=== PATIENT | male | born 1960 | race Caucasian/White ===

== ENCOUNTER → 2017-10-12 | Outpatient (CLI) | payer BC ==
[~2017-10-12] MED LIST: ASPI-113 PO; ATOR80TA PO; CLOP1TAB5 PO; ESCI1TAB9 PO; METO25TA3 PO; NTRGSL/4 UT; OMEP20CA9 PO; SYMIN160 INH
[2017-10-12 10:16] LABS: ALT/SGPT 24 U/L (12-78); AST/SGOT 20 U/L (15-37); BLOOD UREA NITROGEN 12 mg/dl (7-18); BUN/CREATININE RATIO 13.6 (10-20); CALCIUM 9.2 mg/dl (8.5-10.1); CARBON DIOXIDE 30 mmol/L (21-32); CHLORIDE 100 mmol/L (98-107); CHOLESTEROL 136 mg/dl (0-200); CREATININE 0.88 mg/dl (0.60-1.40); GLUCOSE 93 mg/dl (70-99); SODIUM 134 mmol/L (136-145)
[2017-10-12 10:19] LABS: HDL CHOLESTEROL 45 mg/dl; LDL CHOLESTEROL CALCULATED 77 mg/dl; TRIGLYCERIDES 72 mg/dl (0-150); VERY LOW DENSITY LIPOPROT CALC 14 mg/dl
== END | disposition home or self-care (01) ==
LOC: C.LAB 08:48
DX: I10 Essential (primary) hypertension (principal); E78.5 Hyperlipidemia, unspecified

== ENCOUNTER 2024-02-04 22:42 | Inpatient (IN) ==
[2024-02-04 23:36] LABS: Hematocrit (blood only) 31.6 % (42.0-52.0); Hemoglobin 10.9 g/dl (14.0-18.0); Mean Corpuscular Hgb Conc 34.5 g/dL (32.0-36.0); Mean Corpuscular Volume 89.8 fL (80.0-100.0); Platelet Count 181 K/uL (130-400); RDW Coefficient of Variation 11.9 % (11.5-14.5); Red Blood Count 3.52 M/uL (4.70-6.10); White Blood Count 7.44 K/ul (4.8-10.8)
[2024-02-04 23:47] LABS: Albumin Globulin Ratio 1.8 (0.9-2); Albumin Level 3.7 gm/dl (3.4-5.0); BUN Creatinine Ratio 23.1 (10-20); Bilirubin,Total 0.5 mg/dl (0.2-1.0); Calcium 8.9 mg/dl (8.6-10.3); Creatinine Clr Calc Pharmacy 57.2 ml/min; Est GFR (African American) 65.3 ml/min; Est GFR (Non-African American) 56.4 ml/min; Globulin 2.1 gm/dl (2.5-4.0); Potassium 4.5 mmol/L (3.5-5.1); Total Protein 5.8 gm/dl (6.0-8.3)
[2024-02-04 23:54] LABS: Troponin I High Sensitivity 6.4 pg/ml (0-20)
[2024-02-05 00:06] LABS: Partial Thromboplastin Ratio 0.8; Partial Thromboplastin Time 23 Seconds (21-31); Prothrombin Time 11.1 Seconds (9.0-12.0)
[2024-02-05] MEDS: FAMOTIDINE 20MG IV PUSH 20 MG/5 ML SYR IV STA (03:37)
--- NOTE | 2024-02-05 03:37 | History & Physical Report ---
Date of Service February 05, 2024 Assessment & Plan (1) Upper GI bleed: Plan: Pt is a 63 yo male with PMH of HTN, CAD, HLD, and asthma presenting due to syncope and dark stools. Upper GI bleed - pt had endoscopy performed 02/03/2024 where he had a Schatzki ring dilated and biopsies taken d/t gastritis (path showed inflammation, no metaplasia) - Hgb from 02/2022 15.0; 10.9 upon admission - continue protonix drip started in ER; will keep NPO aside from necessary meds - monitor Hgb and symptoms for stability/improvement Acute blood loss anemia - secondary to above - folate 12.68, B12 292, iron studies WNL (although ferritin low-normal) Orthostatic hypotension w/ syncope - pt was evaluated upon prior presentation to the ER 02/03 after passing out at his PCP office while having orthostatic VS performed - CXR neg; CTA showed no PE or consolidations and a 3 mm lung nodule (not requiring f/u) - suspect most likely secondary to above - hold home losartan, metoprolol, and tamsulosin CAD - pt states he had a stent placed in 2004; no hx of acute ID or stroke - will hold plavix and aspirin in the setting of active bleed; if Hgb remains stable, medications should be restarted as early as is safe Depression - continue home escitalopram 10 mg Diet: NPO VTE ppx: deferred as pt is actively bleeding Code: full Dispo: med/tele (2) Hypertension: (3) Dyslipidemia: (4) Multiple vessel coronary artery disease: (5) Anemia: (6) Orthostatic hypotension: History of Present Illness Chief Complaint: syncope, black stool Primary Care Provider: Ramone Alan DO Pt is a 63 yo male with PMH of HTN, CAD, HLD, and asthma presenting due to syncope and dark stools. Pt relays that he had an endoscopy on 02/02 d/t GERD. That evening, he began to feel lightheaded/dizzy and SOB, especially when walking around. He was seen at his PCP office yesterday and when doing orthostatic vital signs, he passed out. He was evaluated in the ER and discharged home. However, after arriving at home, he continued to feel lightheaded/dizzy with ambulation and noted to have a black stool which prompted his return to the ER. In the ER, pt was started on a protonix drip and given famotidine 20 mg x1. Allergies Allergy/AdvReac Type Severity Reaction Status Date / Time Penicillins Allergy Unknown A Verified 02/04/24 10:03 CHILD/UNSURE OF REACTION Home Medications Medication Instructions Recorded Confirmed Type aspirin 81 mg tablet,delayed 81 mg PO Q2D 12/03/19 02/05/24 History release nitroglycerin 0.4 mg sublingual 0.4 mg sublingual Q5M PRN chest 12/03/19 02/05/24 Rx tablet pain #25 tabs budesonide 180 mcg/actuation 1 inh inhalation DAILY PRN asthma 03/07/23 02/05/24 Rx breath activated powder inhaler #1 ea (Pulmicort Flexhaler) pantoprazole 40 mg tablet,delayed 40 mg PO DAILY PRN Heartburn 12/03/23 02/05/24 History release escitalopram oxalate 10 mg tablet 10 mg PO QAM 01/22/24 02/05/24 History losartan 25 mg tablet 25 mg PO QAM 01/22/24 02/05/24 History metoprolol succinate 25 mg 25 mg PO QAM 01/22/24 02/05/24 History tablet,extended release 24 hr montelukast 10 mg tablet 10 mg PO HS 01/22/24 02/05/24 History (Singulair) rosuvastatin 40 mg tablet 40 mg PO HS 01/22/24 02/05/24 History tamsulosin 0.4 mg capsule 0.4 mg PO UD 01/22/24 02/05/24 History clopidogrel 75 mg tablet (Plavix) 75 mg PO Q OTHER DAY 02/04/24 02/05/24 History prednisone 20 mg tablet 60 mg (3 x 20 mg) PO DAILY 4 days 02/04/24 02/05/24 Rx #12 tabs Past Med/Surg History Medical History On anticoagulant therapy History of COVID-19 Heartburn History of cold sores Hx of prostatitis Hypertension Multiple vessel coronary artery disease Dyslipidemia Asthma Allergic rhinitis Surgical History History of colonoscopy [place] teeth removed S/P herniorrhaphy (~2012) S/P coronary artery stent placement (2004) Family History Father Coronary heart disease Grandmother (Maternal) Breast cancer Grandfather (Maternal) Myocardial infarction Grandmother (Paternal) Parkinson disease Father CVA (cerebrovascular accident due to intracerebral hemorrhage) Other No family history of adverse response to anesthesia Social History Smoking Status: Never smoker Second Hand Exposure: No ( A CHILD); Do You Dip or Chew Tobacco: No; Hx Alcohol Use: Yes Alcohol type: wine Alcohol Intake Frequency: 2-4 x/Month Hx Substance Use: No Preferred Language: Malay Communication Ability: Effective Visual Impairment: Limited Hearing Ability: Normal Clamshell Engineer Required: No Beliefs That Will Affect Care: None marital status: Current Living Situation: Spouse current occupational status: employed Other Information That Helps Us Care for You: No Feels Safe at Home: Yes Safety Concerns: Feels Safe At This Time Childhood Exposure to Second-Hand Smoke: Yes Diet: regular caffeine: Yes Dental Care, Regularly: Yes Physical Activity Frequency: 5-6 Times per Week Seatbelt Use: always Sunscreen Use: Yes Do you think of yourself as: straight/heterosexual Assistive Devices: None Review of Systems Review of Systems: As per HPI Physical Exam Constitutional: NAD, vitals WNL. Pale appearing. Respiratory: CTA bilaterally. Non labored breathing. No rhonchi, wheezing, or crackles. Cardiovascular: RRR. No murmurs noted. No LE edema. Gastrointestinal (Abdomen): Nontender, +BS. No masses noted. Skin: No rashes or skin lesions noted. Neurologic: Sensation grossly intact. No FND appreciated. Psychiatric: Speech of normal pace and content. Mood and affect congruent. Results & Data Results & Data Vital Signs (Past 12 Hours) Vital Signs Temp Pulse Resp BP Pulse Ox O2 Del Method 02/05/24 03:20 74 22 96 02/05/24 03:10 71 18 95 02/05/24 03:00 69 16 93 02/05/24 03:00 69 16 120/72 93 02/05/24 02:50 67 15 94 02/05/24 02:41 80 19 96 02/05/24 02:41 80 19 107/74 96 02/05/24 02:40 84 12 95 02/05/24 02:40 84 12 120/76 95 02/05/24 02:39 70 15 95 02/05/24 02:39 70 15 127/76 95 02/05/24 02:30 65 15 94 02/05/24 02:30 65 15 115/73 94 02/05/24 02:20 68 16 94 02/05/24 02:15 74 16 95 02/05/24 02:15 74 16 112/72 95 02/05/24 02:10 66 15 95 02/05/24 02:00 68 16 112/72 95 02/05/24 01:50 67 16 96 02/05/24 01:48 67 15 95 02/05/24 01:48 66 02/04/24 22:50 36.8 C 89 18 129/83 97 Room Air Laboratory Results Laboratory Results WBC 8.46 K/ul (4.8-10.8) 02/05/24 04:29 RBC 3.39 M/uL (4.70-6.10) L 02/05/24 04:29 Hgb 10.5 g/dl (14.0-18.0) L 02/05/24 04:29 Hct 29.3 % (42.0-52.0) L 02/05/24 04:29 MCV 86.4 fL (80.0-100.0) 02/05/24 04:29 MCH 31.0 pg (25.0-34.0) 02/05/24 04:29 MCHC 35.8 g/dL (32.0-36.0) 02/05/24 04:29 RDW Std Deviation 37.5 fL (36.4-46.3) 02/05/24 04:29 RDW Coeff of [place] 11.9 % (11.5-14.5) 02/05/24 04:29 Plt Count 173 K/uL (130-400) 02/05/24 04:29 MPV 10.7 fL (9.4-12.4) 02/05/24 04:29 PT 11.1 Seconds (9.0-12.0) 02/04/24 23:15 INR 1.0 (0.9-1.1) 02/04/24 23:15 APTT 23 Seconds (21-31) 02/04/24 23:15 PTT Ratio 0.8 02/04/24 23:15 Sodium 132 mmol/L (136-145) L 02/05/24 04:29 Potassium 4.2 mmol/L (3.5-5.1) 02/05/24 04:29 Chloride 105 mmol/L (98-107) 02/05/24 04:29 Carbon Dioxide 22 mmol/L (21-32) 02/05/24 04:29 Anion Gap 5 (3-11) 02/05/24 04:29 BUN 23 mg/dl (6-23) 02/05/24 04:29 Creatinine 0.75 mg/dl (0.6-1.4) D 02/05/24 04:29 Est Cr Clr Drug Dosing 102.1 ml/min 02/05/24 04:29 Est GFR ( Amer) 113.9 ml/min 02/05/24 04:29 Est GFR (Non-Af Amer) 98.3 ml/min 02/05/24 04:29 BUN/Creatinine Ratio 30.7 (10-20) H 02/05/24 04:29 Glucose 166 mg/dl (70-99(Fasting)) H 02/05/24 04:29 Calcium 8.8 mg/dl (8.6-10.3) 02/05/24 04:29 Total Bilirubin 0.5 mg/dl (0.2-1.0) 02/04/24 23:15 AST 16 U/L (13-39) 02/04/24 23:15 ALT 12 U/L (7-52) 02/04/24 23:15 Alkaline Phosphatase 58 U/L (34-104) 02/04/24 23:15 Troponin I High Sens 6.4 pg/ml (0-20) 02/04/24 23:15 Total Protein 5.8 gm/dl (6.0-8.3) L 02/04/24 23:15 Albumin 3.7 gm/dl (3.4-5.0) 02/04/24 23:15 Globulin 2.1 gm/dl (2.5-4.0) L 02/04/24 23:15 Albumin/Globulin Ratio 1.8 (0.9-2) 02/04/24 23:15 POC Stool Occult Blood Positive (Negative) A 02/05/24 03:26 Blood Type O Negative 02/04/24 23:17 Antibody Screen NEGATIVE 02/04/24 23:17 Supervising Physician Co-Signing Physician Notes Patient seen and examined, chart reviewed, case discussed with Dr. Osullivan and I agree with the assessment and plan as above Patient with recent EGD as followup for GERD. Had biopsies performed and Schatzki ring dilated. Has had pre-syncope and black BMs since as well as nausea and vomiting (no hematemesis but patient reports vomiting what looked like a maroon string) Hgb has gone from baseline of 15 in February 2022 --> 10.6 today. Has been stable on repeat. No coagulopathy. Platelets WNL. He is on ASA and Plavix for h/o cardiac stent but hasn't taken this since Tuesday 01/30 BUN was elevated at 48 earlier on 02/04/24 but has improved, now 23 FOBT Positive No history of liver disease On exam patient is resting comfortably, NAD +S1/S2, regular Lungs CTA Abd soft, NT/ND Ext warm, well perfused Labs and images reviewed -Admit to medical with telemetry -KEep NPO -Gentle IVF -Continue Protonix gtt -GI consultation appreciated -Remainder as above Resident Activity Tracking Resident Involvement: Resident Care Provided Care Provided: Adult Hospital Medicine
[2024-02-05] MEDS: PANTOprazole 80 MG in DEXTROSE 5% 100 ML IV ONE (03:38)
[2024-02-05] MEDS: PANTOPRAZOLE BOLUS/DRIP IV STA (03:42)
[2024-02-05] MEDS: PANTOprazole 40 MG in DEXTROSE 5% MINI-B 100 ML IV SCH (03:58)
[2024-02-05] MEDS ORDERED: ONDANSETRON INJ 2 MG/ML 2 ML VIAL IV PRN (04:30)
--- NOTE | 2024-02-05 04:32 | Emergency Department Note ---
Impression & Plan UGIB (upper gastrointestinal bleed) ED Provider Note NAME: CATALINO GARCIA AGE: 63 SEX: Male INFORMANT: Patient ED PROVIDER(S): Paolo Fatima MD CHIEF COMPLAINT: Near syncope and black stool PLAN: Disposition: Admitted Outpatient prescription management: none Referral: None MEDICAL DECISION MAKING: Patient presented because of near syncope symptoms and black stool. Hemoccult positive on rectal examination. Patient has a 5 point drop in his hemoglobin compared to 2021. Stable from earlier today. Protonix and Pepcid started. Patient will need further evaluation and management in the hospital. Consultation made with Dr. Joe of the [facility]. Case discussed and diagnostics were reviewed. Patient was evaluated in the ER and admitted for further management. 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 Triage Nursing notes: reviewed and agree them. Vital Signs: reviewed and remarkable for no significant abnormalities Additional History obtained from: none Chronic Medical/Social Conditions affecting care: Plavix use Prior/ Outside/ External records reviewed: none Differential Diagnosis: Diverticulosis, AVM, coagulopathy, colitis, inflammatory bowel disease, malignancy, Isabel-Hahn tear, esophagitis, peptic ulcer disease, variceal bleed, gastritis, epistaxis, fissure, hemorrhoids, as well as other pathologies. Diagnostics, independently interpreted by me: ECG: Normal sinus rhythm at [address] No [address] elevation. Cardiac Monitoring: Cardiac monitoring ordered by me: The patient was placed on continuous cardiac monitoring and observed. It revealed a normal sinus rhythm at 68 beats per minute without ectopy or evidence of dysrhythmia. Medical decision rules: none Imaging studies: Deferred HPI: 63 year old Male arrives for evaluation of near syncope and black stool. Patient was in the emergency department earlier today after syncopal episode. He did well and was discharged. When he went home he noted the symptoms of near syncope. No additional syncopal episodes occurred. He felt some weakness with walking. The patient then noted having a black stool. Patient did recently have an endoscopy performed. He is on Plavix but has not taken it in several days. No history of GI bleed. Pt denies headache, fevers, chills, diaphoresis, visual changes, neck pain, chest pain, breathing difficulties, nausea, vomiting, abdominal pain, back pain, hematochezia, urinary symptoms, numbness, weakness, lymphadenopathy, rash, or other complaints. PAST MEDICAL HISTORY: See Below, CAD PAST SURGICAL HISTORY: See Below, SOCIAL HISTORY: See Below, HOME MEDICATIONS: See Below ALLERGIES: See Below VITALS: See Below PHYSICAL EXAMINATION: GENERAL: Awake, alert, well-appearing, in no distress HENT: Normocephalic, atraumatic. Oropharynx unremarkable. EYES: Pale conjunctiva. Sclera non-icteric. NECK: Inspection normal. Non-tender. Supple. No nuchal rigidity. FROM. No masses. RESPIRATORY: Clear to auscultation. No wheezes. No rales. Normal respiratory effort. CARDIAC: Normal rate. Normal rhythm. No murmurs. No rubs. Extremities warm and well perfused. Pulses equal. No JVD. GI: Soft, non-distended. No tenderness to palpation. No rebound or guarding. No masses. RECTAL: Hemoccult positive MUSCULOSKELETAL: Atraumatic. Chest examination reveals no tenderness. The back is symmetrical on inspection without obvious abnormality. There is no CVA tenderness to palpation. No joint edema. LOWER EXTREMITIES: Calves are equal size bilaterally and non-tender. No edema. No discoloration. NEURO: Normal sensorium. No sensory or motor deficits noted. SKIN: No rash or jaundice noted. PROCEDURES: none CRITICAL CARE: none OBSERVATION NOTE: none Past Med/Surg History Medical History On anticoagulant therapy History of COVID-19 05/2021->severe flu symptoms. treated Paxlovid -> then developed a rebound covid (severe sob) Heartburn History of cold sores Treated with Valtrex Hx of prostatitis hx - no recent issues Hypertension Multiple vessel coronary artery disease Dyslipidemia Asthma used inhaler earlier in December 2023 Allergic rhinitis Surgical History History of colonoscopy 09/2022 Repeat 10 yrs [place] teeth removed S/P herniorrhaphy (~2012) S/P coronary artery stent placement (2004) 2005-> 1 stent placed at [facility], follows with Dr Cardenas. Reason for the Plavix Family History Father Coronary heart disease Grandmother (Maternal) Breast cancer Grandfather (Maternal) Myocardial infarction Grandmother (Paternal) Parkinson disease Father CVA (cerebrovascular accident due to intracerebral hemorrhage) Other No family history of adverse response to anesthesia Social History Smoking Status: Never smoker Second Hand Exposure: No ( A CHILD); Do You Dip or Chew Tobacco: No; Hx Alcohol Use: Yes Alcohol type: wine Alcohol Intake Frequency: 2-4 x/Month Hx Substance Use: No Preferred Language: Korean Communication Ability: Effective Visual Impairment: Limited Hearing Ability: Normal Beet Topper Required: No Beliefs That Will Affect Care: None marital status: Current Living Situation: Spouse current occupational status: employed Feels Safe at Home: Yes Childhood Exposure to Second-Hand Smoke: Yes Diet: regular caffeine: Yes Dental Care, Regularly: Yes Physical Activity Frequency: 5-6 Times per Week Seatbelt Use: always Sunscreen Use: Yes Do you think of yourself as: straight/heterosexual Assistive Devices: None Allergies Allergies Allergy/AdvReac Type Severity Reaction Status Date / Time Penicillins Allergy Unknown A Verified 02/04/24 10:03 CHILD/UNSURE OF REACTION Home Meds Home Medications Medication Instructions Recorded Confirmed escitalopram oxalate 10 mg tablet 10 mg PO QAM 01/22/24 02/05/24 losartan 25 mg tablet 25 mg PO QAM 01/22/24 02/05/24 metoprolol succinate 25 mg 25 mg PO QAM 01/22/24 02/05/24 tablet,extended release 24 hr montelukast 10 mg tablet 10 mg PO HS 01/22/24 02/05/24 (Singulair) rosuvastatin 40 mg tablet 40 mg PO HS 01/22/24 02/05/24 tamsulosin 0.4 mg capsule 0.4 mg PO UD 01/22/24 02/05/24 clopidogrel 75 mg tablet (Plavix) 75 mg PO Q OTHER DAY 02/04/24 02/05/24 Previous Rx's Medication Instructions Recorded nitroglycerin 0.4 mg sublingual 0.4 mg sublingual Q5M PRN chest 12/03/19 tablet pain #25 tabs budesonide 180 mcg/actuation 1 inh inhalation DAILY PRN asthma 03/07/23 breath activated powder inhaler #1 ea (Pulmicort Flexhaler) prednisone 20 mg tablet 60 mg (3 x 20 mg) PO DAILY 4 days 02/04/24 #12 tabs cyanocobalamin (vitamin B-12) 1,000 mcg PO DAILY #30 tabs 02/06/24 1,000 mcg tablet pantoprazole 40 mg tablet,delayed 40 mg PO BID #60 tabs 02/06/24 release Results & Data (ED) Vital Signs Vital Signs - 24 hr 02/04/24 22:50 02/05/24 01:48 02/05/24 01:48 Temperature 36.8 C Temperature Source Temporal Artery Scan Pulse Rate - Lying Pulse Rate - Sitting Pulse Rate - Standing Pulse Rate 89 66 67 Pulse Rate from SpO2 Sensor 67 Pulse Rhythm Regular Pulse Strength Normal Respiratory Rate 18 15 Respiratory Effort / Characteristics Non-Labored Spontaneous Respiratory Depth Normal Respiratory Pattern Regular Blood Pressure - Lying Blood Pressure - Sitting Blood Pressure- Standing Blood Pressure 129/83 Blood Pressure Mean 98 Blood Pressure Position Sitting Pulse Oximetry 97 95 Oxygen Delivery Method Room Air Sepsis Recent Fever Within 48 Hours No Sepsis New/Unexplained Change in Mental Status N/A Sepsis Action Taken by Nursing No Action Required 02/05/24 01:50 02/05/24 02:00 02/05/24 02:10 Temperature Temperature Source Pulse Rate - Lying Pulse Rate - Sitting Pulse Rate - Standing Pulse Rate 67 68 66 Pulse Rate from SpO2 Sensor 67 67 67 Pulse Rhythm Pulse Strength Respiratory Rate 16 16 15 Respiratory Effort / Characteristics Respiratory Depth Respiratory Pattern Blood Pressure - Lying Blood Pressure - Sitting Blood Pressure- Standing Blood Pressure 112/72 Blood Pressure Mean 85 Blood Pressure Position Pulse Oximetry 96 95 95 Oxygen Delivery Method Sepsis Recent Fever Within 48 Hours Sepsis New/Unexplained Change in Mental Status Sepsis Action Taken by Nursing 02/05/24 02:15 02/05/24 02:15 02/05/24 02:20 Temperature Temperature Source Pulse Rate - Lying Pulse Rate - Sitting Pulse Rate - Standing Pulse Rate 74 74 68 Pulse Rate from SpO2 Sensor 75 69 Pulse Rhythm Pulse Strength Respiratory Rate 16 16 16 Respiratory Effort / Characteristics Respiratory Depth Respiratory Pattern Blood Pressure - Lying Blood Pressure - Sitting Blood Pressure- Standing Blood Pressure 112/72 Blood Pressure Mean 92 Blood Pressure Position Pulse Oximetry 95 95 94 Oxygen Delivery Method Sepsis Recent Fever Within 48 Hours Sepsis New/Unexplained Change in Mental Status Sepsis Action Taken by Nursing 02/05/24 02:30 02/05/24 02:30 02/05/24 02:39 Temperature Temperature Source Pulse Rate - Lying 70 Pulse Rate - Sitting 76 Pulse Rate - Standing 87 Pulse Rate 65 65 Pulse Rate from SpO2 Sensor 65 Pulse Rhythm Pulse Strength Respiratory Rate 15 15 Respiratory Effort / Characteristics Respiratory Depth Respiratory Pattern Blood Pressure - Lying 127/76 Blood Pressure - Sitting 120/76 Blood Pressure- Standing 107/74 Blood Pressure 115/73 Blood Pressure Mean 80 Blood Pressure Position Pulse Oximetry 94 94 Oxygen Delivery Method Sepsis Recent Fever Within 48 Hours Sepsis New/Unexplained Change in Mental Status Sepsis Action Taken by Nursing 02/05/24 02:39 02/05/24 02:39 02/05/24 02:40 Temperature Temperature Source Pulse Rate - Lying Pulse Rate - Sitting Pulse Rate - Standing Pulse Rate 70 70 84 Pulse Rate from SpO2 Sensor 72 Pulse Rhythm Pulse Strength Respiratory Rate 15 15 12 Respiratory Effort / Characteristics Respiratory Depth Respiratory Pattern Blood Pressure - Lying Blood Pressure - Sitting Blood Pressure- Standing Blood Pressure 127/76 120/76 Blood Pressure Mean 92 93 Blood Pressure Position Pulse Oximetry 95 95 95 Oxygen Delivery Method Sepsis Recent Fever Within 48 Hours Sepsis New/Unexplained Change in Mental Status Sepsis Action Taken by Nursing 02/05/24 02:40 02/05/24 02:41 02/05/24 02:41 Temperature Temperature Source Pulse Rate - Lying Pulse Rate - Sitting Pulse Rate - Standing Pulse Rate 84 80 80 Pulse Rate from SpO2 Sensor 84 79 Pulse Rhythm Pulse Strength Respiratory Rate 12 19 19 Respiratory Effort / Characteristics Respiratory Depth Respiratory Pattern Blood Pressure - Lying Blood Pressure - Sitting Blood Pressure- Standing Blood Pressure 107/74 Blood Pressure Mean 84 Blood Pressure Position Pulse Oximetry 95 96 96 Oxygen Delivery Method Sepsis Recent Fever Within 48 Hours Sepsis New/Unexplained Change in Mental Status Sepsis Action Taken by Nursing 02/05/24 02:50 02/05/24 03:00 02/05/24 03:00 Temperature Temperature Source Pulse Rate - Lying Pulse Rate - Sitting Pulse Rate - Standing Pulse Rate 67 69 69 Pulse Rate from SpO2 Sensor 67 70 Pulse Rhythm Pulse Strength Respiratory Rate 15 16 16 Respiratory Effort / Characteristics Respiratory Depth Respiratory Pattern Blood Pressure - Lying Blood Pressure - Sitting Blood Pressure- Standing Blood Pressure 120/72 Blood Pressure Mean 86 Blood Pressure Position Pulse Oximetry 94 93 93 Oxygen Delivery Method Sepsis Recent Fever Within 48 Hours Sepsis New/Unexplained Change in Mental Status Sepsis Action Taken by Nursing 02/05/24 03:10 02/05/24 03:20 02/05/24 03:30 Temperature Temperature Source Pulse Rate - Lying Pulse Rate - Sitting Pulse Rate - Standing Pulse Rate 71 74 69 Pulse Rate from SpO2 Sensor 71 73 Pulse Rhythm Pulse Strength Respiratory Rate 18 22 15 Respiratory Effort / Characteristics Respiratory Depth Respiratory Pattern Blood Pressure - Lying Blood Pressure - Sitting Blood Pressure- Standing Blood Pressure 118/76 Blood Pressure Mean 91 Blood Pressure Position Pulse Oximetry 95 96 96 Oxygen Delivery Method Sepsis Recent Fever Within 48 Hours Sepsis New/Unexplained Change in Mental Status Sepsis Action Taken by Nursing 02/05/24 03:30 02/05/24 03:40 02/05/24 03:50 Temperature Temperature Source Pulse Rate - Lying Pulse Rate - Sitting Pulse Rate - Standing Pulse Rate 69 67 66 Pulse Rate from SpO2 Sensor 68 67 66 Pulse Rhythm Pulse Strength Respiratory Rate 15 16 13 Respiratory Effort / Characteristics Respiratory Depth Respiratory Pattern Blood Pressure - Lying Blood Pressure - Sitting Blood Pressure- Standing Blood Pressure Blood Pressure Mean Blood Pressure Position Pulse Oximetry 96 96 94 Oxygen Delivery Method Sepsis Recent Fever Within 48 Hours Sepsis New/Unexplained Change in Mental Status Sepsis Action Taken by Nursing 02/05/24 04:00 02/05/24 04:00 02/05/24 04:10 Temperature Temperature Source Pulse Rate - Lying Pulse Rate - Sitting Pulse Rate - Standing Pulse Rate 71 71 68 Pulse Rate from SpO2 Sensor 70 69 Pulse Rhythm Pulse Strength Respiratory Rate 18 18 24 Respiratory Effort / Characteristics Respiratory Depth Respiratory Pattern Blood Pressure - Lying Blood Pressure - Sitting Blood Pressure- Standing Blood Pressure 134/88 Blood Pressure Mean 104 Blood Pressure Position Pulse Oximetry 95 95 96 Oxygen Delivery Method Sepsis Recent Fever Within 48 Hours Sepsis New/Unexplained Change in Mental Status Sepsis Action Taken by Nursing Laboratory Data 02/06/24 03:46 02/06/24 03:46 Lab Results 02/04/24 02/04/24 02/05/24 Range/Units 23:15 23:17 03:26 WBC 7.44 (4.8-10.8) K/ul RBC 3.52 L (4.70-6.10) M/uL Hgb 10.9 L (14.0-18.0) g/dl Hct 31.6 L (42.0-52.0) % MCV 89.8 (80.0-100.0) fL MCH 31.0 (25.0-34.0) pg MCHC 34.5 (32.0-36.0) g/dL RDW Std Deviation 39.0 (36.4-46.3) fL RDW Coeff of [place] 11.9 (11.5-14.5) % Plt Count 181 (130-400) K/uL MPV 11.0 (9.4-12.4) fL PT 11.1 (9.0-12.0) Seconds INR 1.0 (0.9-1.1) APTT 23 (21-31) Seconds PTT Ratio 0.8 Sodium 134 L (136-145) mmol/L Potassium 4.5 (3.5-5.1) mmol/L Chloride 107 (98-107) mmol/L Carbon Dioxide 24 (21-32) mmol/L Anion Gap 3 (3-11) BUN 31 H (6-23) mg/dl Creatinine 1.34 D (0.6-1.4) mg/dl Est Cr Clr Drug Dosing 57.2 ml/min Est GFR ( Amer) 65.3 ml/min Est GFR (Non-Af Amer) 56.4 ml/min BUN/Creatinine Ratio 23.1 H (10-20) Glucose 228 H (70-99(Fasting)) mg/dl Calcium 8.9 (8.6-10.3) mg/dl Total Bilirubin 0.5 (0.2-1.0) mg/dl AST 16 (13-39) U/L ALT 12 (7-52) U/L Alkaline Phosphatase 58 (34-104) U/L Troponin I High Sens 6.4 (0-20) pg/ml Total Protein 5.8 L (6.0-8.3) gm/dl Albumin 3.7 (3.4-5.0) gm/dl Globulin 2.1 L (2.5-4.0) gm/dl Albumin/Globulin Ratio 1.8 (0.9-2) POC Stool Occult Blood Positive A (Negative) Blood Type O Negative Antibody Screen NEGATIVE 02/05/24 Range/Units 04:29 WBC 8.46 (4.8-10.8) K/ul RBC 3.39 L (4.70-6.10) M/uL Hgb 10.5 L (14.0-18.0) g/dl Hct 29.3 L (42.0-52.0) % MCV 86.4 (80.0-100.0) fL MCH 31.0 (25.0-34.0) pg MCHC 35.8 (32.0-36.0) g/dL RDW Std Deviation 37.5 (36.4-46.3) fL RDW Coeff of [place] 11.9 (11.5-14.5) % Plt Count 173 (130-400) K/uL MPV 10.7 (9.4-12.4) fL PT (9.0-12.0) Seconds INR (0.9-1.1) APTT (21-31) Seconds PTT Ratio Sodium 132 L (136-145) mmol/L Potassium 4.2 (3.5-5.1) mmol/L Chloride 105 (98-107) mmol/L Carbon Dioxide 22 (21-32) mmol/L Anion Gap 5 (3-11) BUN 23 (6-23) mg/dl Creatinine 0.75 D (0.6-1.4) mg/dl Est Cr Clr Drug Dosing 102.1 ml/min Est GFR ( Amer) 113.9 ml/min Est GFR (Non-Af Amer) 98.3 ml/min BUN/Creatinine Ratio 30.7 H (10-20) Glucose 166 H (70-99(Fasting)) mg/dl Calcium 8.8 (8.6-10.3) mg/dl Total Bilirubin (0.2-1.0) mg/dl AST (13-39) U/L ALT (7-52) U/L Alkaline Phosphatase (34-104) U/L Troponin I High Sens (0-20) pg/ml Total Protein (6.0-8.3) gm/dl Albumin (3.4-5.0) gm/dl Globulin (2.5-4.0) gm/dl Albumin/Globulin Ratio (0.9-2) POC Stool Occult Blood (Negative) Blood Type Antibody Screen Administered Medications Discontinued Medications Escitalopram Oxalate (Escitalopram Oxalate 10 Mg Tab) 10 mg PO [facility] Stop: 03/06/24 08:59 Last Admin: 02/06/24 10:19 Dose: 10 mg Documented By: YOUSUF Co-signed By: AG Admin: 02/05/24 08:50 Dose: 10 mg Documented By: YUKO Pantoprazole Sodium 80 mg/ (Dextrose) 120 mls @ 480 mls/hr IV NOW ONE Stop: 02/05/24 03:25 Last Infusion: 02/05/24 03:59 Dose: Infused Documented By: Admin: 02/05/24 03:38 Dose: 480 mls/hr Documented By: ONIEL Pantoprazole Sodium 40 mg/ (Dextrose) 100 mls @ 20 mls/hr IV Q5H ANDRE Stop: 03/06/24 03:29 Last Infusion: 02/05/24 11:07 Dose: Infused Documented By: Infusion: 02/05/24 11:04 Dose: 0 mg/hr, 0 mls/hr Documented By: Infusion: 02/05/24 11:01 Dose: 0 mg/hr, 0 mls/hr Documented By: Admin: 02/05/24 08:50 Dose: 8 mg/hr, 20 mls/hr Documented By: Infusion: 02/05/24 08:50 Dose: Infused Documented By: Admin: 02/05/24 03:58 Dose: 8 mg/hr, 20 mls/hr Documented By: ONIEL Famotidine (Pepcid 20mg Iv Push) 20 mg in 5 mls @ 2.5 mls/min IV NOW STA Stop: 02/05/24 03:12 Last Admin: 02/05/24 03:37 Dose: 2.5 mls/min Documented By: ONIEL Lactated Ringer's (Lr) 1,000 mls @ 125 mls/hr IV .Q8H ANDRE Stop: 03/06/24 05:21 Last Infusion: 02/06/24 15:38 Dose: Infused Documented By: Admin: 02/06/24 05:49 Dose: 125 mls/hr Documented By: Infusion: 02/06/24 05:49 Dose: Infused Documented By: Admin: 02/05/24 22:52 Dose: 125 mls/hr Documented By: Infusion: 02/05/24 22:52 Dose: Infused Documented By: Admin: 02/05/24 15:09 Dose: 125 mls/hr Documented By: Infusion: 02/05/24 15:09 Dose: Infused Documented By: Admin: 02/05/24 05:57 Dose: 80 mls/hr Documented By: ONIEL Lactated Ringer's (Lr) 1,000 mls @ 999 mls/hr IV .Q1H1M ONE Stop: 02/05/24 11:53 Last Infusion: 02/05/24 15:14 Dose: Infused Documented By: Admin: 02/05/24 11:08 Dose: 999 mls/hr Documented By: YUKO Sodium Chloride (Nss) 500 mls @ 15 mls/hr IV .Q24H ANDRE Stop: 03/07/24 11:44 Last Infusion: 02/06/24 12:19 Dose: Infused Documented By: Admin: 02/06/24 12:19 Dose: 15 mls/hr Documented By: DAMON Montelukast Sodium (Montelukast Sodium 10 Mg Tablet) 10 mg PO HS ANDRE Stop: 03/06/24 20:59 Last Admin: 02/05/24 21:44 Dose: 10 mg Documented By: ALESSANDRO Pantoprazole Sodium (Pantoprazole Bolus/Drip) 1 each IV NOW STA Stop: 02/05/24 03:12 Last Admin: 02/05/24 03:42 Dose: 1 each Documented By: ONIEL Pantoprazole Sodium (Pantoprazole 40 Mg Tab) 40 mg PO BID ANDRE Stop: 03/06/24 10:44 Last Admin: 02/06/24 10:20 Dose: 40 mg Documented By: YOUSUF Co-signed By: AG Admin: 02/05/24 21:44 Dose: 40 mg Documented By: Admin: 02/05/24 11:06 Dose: 40 mg Documented By: YUKO Rosuvastatin Calcium (Rosuvastatin Calcium 20 Mg Tab) 40 mg PO ANDRE Stop: 03/06/24 20:59 Last Admin: 02/05/24 21:44 Dose: 40 mg Documented By: ALESSANDRO Discharge Plan Visit Data Chief Complaint: GI Bleed Stated Complaint: DIZZY, LIGHTHEADED, BLACK STOOL, SOB/STAIRS ED Provider: Paolo Fatima Discharge Problem: UGIB (upper gastrointestinal bleed) Patient Disposition: Admitted As Inpatient Discharge Instructions Interventions: ED Discharge Assessment Last Done: 02/05/24 05:22
[2024-02-05 04:53] LABS: Hematocrit (blood only) 29.3 % (42.0-52.0); Hemoglobin 10.5 g/dl (14.0-18.0); Mean Corpuscular Hgb Conc 35.8 g/dL (32.0-36.0); Mean Corpuscular Volume 86.4 fL (80.0-100.0); Mean Platelet Volume 10.7 fL (9.4-12.4); Platelet Count 173 K/uL (130-400); RDW Coefficient of Variation 11.9 % (11.5-14.5); RDW Standard Deviation 37.5 fL (36.4-46.3); Red Blood Count 3.39 M/uL (4.70-6.10); White Blood Count 8.46 K/ul (4.8-10.8)
[2024-02-05 05:03] LABS: BUN Creatinine Ratio 30.7 (10-20); Calcium 8.8 mg/dl (8.6-10.3); Creatinine Clr Calc Pharmacy 102.1 ml/min; Est GFR (African American) 113.9 ml/min; Est GFR (Non-African American) 98.3 ml/min; Potassium 4.2 mmol/L (3.5-5.1)
[2024-02-05] MEDS ORDERED: FLUTICASONE FUROATE 100MCG 14 PUFFS/INHALER INH PRN (05:52)
[2024-02-05] MEDS: LACTATED RINGER'S 1,000 ML IV SCH (05:57)
--- NOTE | 2024-02-05 07:06 | Hospitalist Progress Note ---
Date of Service February 05, 2024 Assessment & Plan (1) Upper GI bleed: Plan: Pt is a 63 yo male with PMH of HTN, CAD, HLD, and asthma presenting due to syncope and dark stools. Upper GI bleed - pt had endoscopy performed 02/03/2024 where he had a Schatzki ring dilated and biopsies taken d/t gastritis (path showed inflammation, no metaplasia) - Hgb from 02/2022 15.0; 10.9 upon admission - continue protonix drip started in ER; switched to oral - monitor Hgb and symptoms for stability/improvement - given clears for lunch, will try reg for dinner tonight - GI consulted; no need for repeat EGD at this time Acute blood loss anemia, stable - secondary to above - folate 12.68, B12 292, iron studies WNL (although ferritin low-normal) - Hgb today stable compared to admission yesterday Orthostatic hypotension w/ syncope - pt was evaluated upon prior presentation to the ER 02/03 after passing out at his PCP office while having orthostatic VS performed - CXR neg; CTA showed no PE or consolidations and a 3 mm lung nodule (not requiring f/u) - suspect most likely secondary to above - hold home losartan, metoprolol, and tamsulosin CAD - pt states he had a stent placed in 2004; no hx of acute PA or stroke - will hold plavix and aspirin in the setting of active bleed; if Hgb remains stable, possibly can restart the plavix in 1 week but should stay off aspirin due to risk of GI bleed Depression - continue home escitalopram 10 mg IVF: 125 mL/hr LR for volume repletion, s/p 1L bolus today VTE ppx: deferred in the setting of GI bleed (2) Hypertension: (3) Dyslipidemia: (4) Multiple vessel coronary artery disease: (5) Anemia: (6) Orthostatic hypotension: Admission and Anticipated Discharge Date Admission Date: February 05, 2024 Supervising Physician Co-Signing Physician Notes I personally examined the patient and verified all snoi points of history and exam, discussed case, and agree with decision making with Dr Dhaliwal Feeling better. Less weak and lightheaded. No other dark stools (no stools at all). Vitals noted, in general he is awake and alert pleasant no distress. HEENT normocephalic atraumatic mucous membranes moist. Breathing unlabored no accessory muscle use good effort. Skin shows no rashes no pallor or icterus. Neuro without focal deficits. Weakness/lightheadedness/orthostasisupper GI bleeding and presumed acute blood loss anemiaappears much more stable now. Small additional fluid bolus given today given his ongoing orthostasis. Aspirin and Plavix held. On a PPI. Follow into tomorrow, advance diet. Hopefully home soon. Discussed with GI bleeding and chronic stable coronary disease, it would be reasonable to discontinue his aspirin and have him on monotherapy with antiplatelet agents with Plavix alone. Otherwise as above Subjective Pt is a 63 yo male with PMH of HTN, CAD, HLD, and asthma presenting due to syncope and dark stools. Today, pt states he is feeling great overall, but does admit he was a bit "whoozy" when walking around the room earlier. He states that he has not had a bowel movement since yesterday either, but it was dark/black yesterday. Otherwise, no questions or complaints today. Review of Systems Review of Systems: Per HPI. Physical Exam Physical Exam: General:Alert and oriented, no acute distress, HEENT: Normocephalic, moist oral mucosa, Cardio: Regular rate and rhythm, no murmur, Resp:Lungs clear to auscultation b/l, no wheezes or rhonchi, GI: Soft and nontender, nondistended, bowel sounds active Skin: Warm, pink, dry, Psych: Mood-affect congruence. Results & Data Results & Data Vital Signs (Past 12 Hours) Vital Signs Temp Pulse Pulse Resp BP BP Pulse Ox 02/05/24 06:30 67 16 97 02/05/24 06:30 67 16 136/81 97 02/05/24 06:20 68 17 96 02/05/24 06:12 70 17 122/73 97 02/05/24 06:10 65 13 96 02/05/24 06:00 67 13 97 02/05/24 06:00 67 13 122/73 97 02/05/24 05:53 81 98 02/05/24 05:44 66 02/05/24 05:40 69 14 94 02/05/24 05:30 68 13 93 02/05/24 05:30 68 13 111/65 93 04/10/24 05:20 68 14 94 02/05/24 05:10 65 14 94 02/05/24 05:00 67 17 92 02/05/24 04:50 65 16 97 02/05/24 04:40 69 16 96 02/05/24 04:30 66 16 117/80 94 02/05/24 04:30 66 16 94 02/05/24 04:20 70 13 95 02/05/24 04:10 68 24 96 02/05/24 04:00 71 18 95 02/05/24 04:00 71 18 134/88 95 02/05/24 03:50 66 13 94 02/05/24 03:40 67 16 96 02/05/24 03:30 69 15 96 02/05/24 03:30 69 15 118/76 96 02/05/24 03:20 74 22 96 02/05/24 03:10 71 18 95 02/05/24 03:00 69 16 93 02/05/24 03:00 69 16 120/72 93 02/05/24 02:50 67 15 94 02/05/24 02:41 80 19 96 02/05/24 02:41 80 19 107/74 96 02/05/24 02:40 84 12 95 02/05/24 02:40 84 12 120/76 95 02/05/24 02:39 70 15 95 02/05/24 02:39 70 15 127/76 95 02/05/24 02:30 65 15 94 02/05/24 02:30 65 15 115/73 94 02/05/24 02:20 68 16 94 02/05/24 02:15 74 16 95 02/05/24 02:15 74 16 112/72 95 02/05/24 02:10 66 15 95 02/05/24 02:00 68 16 112/72 95 02/05/24 01:50 67 16 96 02/05/24 01:48 67 15 95 02/05/24 01:48 66 02/04/24 22:50 36.8 C 89 18 129/83 97 O2 Del Method 02/05/24 06:30 02/05/24 06:30 02/05/24 06:20 02/05/24 06:12 Room Air 02/05/24 06:10 02/05/24 06:00 02/05/24 06:00 02/05/24 05:53 02/05/24 05:44 02/05/24 05:40 02/05/24 05:30 02/05/24 05:30 02/05/24 05:20 02/05/24 05:10 02/05/24 05:00 02/05/24 04:50 02/05/24 04:40 02/05/24 04:30 02/05/24 04:30 02/05/24 04:20 02/05/24 04:10 02/05/24 04:00 02/05/24 04:00 02/05/24 03:50 02/05/24 03:40 02/05/24 03:30 02/05/24 03:30 02/05/24 03:20 02/05/24 03:10 02/05/24 03:00 02/05/24 03:00 02/05/24 02:50 02/05/24 02:41 02/05/24 02:41 02/05/24 02:40 02/05/24 02:40 02/05/24 02:39 02/05/24 02:39 02/05/24 02:30 02/05/24 02:30 02/05/24 02:20 02/05/24 02:15 02/05/24 02:15 02/05/24 02:10 02/05/24 02:00 02/05/24 01:50 02/05/24 01:48 02/05/24 01:48 02/04/24 22:50 Room Air Resident Activity Tracking Resident Involvement: Resident Care Provided Care Provided: Adult Hospital Medicine
[2024-02-05] MEDS: ESCITALOPRAM OXALATE 10 MG TAB PO SCH (08:50)
--- NOTE | 2024-02-05 10:16 | Gastrointestinal Consultation ---
Date of Consultation February 05, 2024 Assessment & Plan (1) Anemia: (2) Upper GI bleed: Plan Patient with sudden onset of near syncopal episode, dizziness, and weakness. He also had one episode of a darker stool, but none since. he is s/p EGD 02/03/24. his hgb has remained stable in the 10 range[address] Discussed case with Dr. Saba. At this time, we do not suspect GI bleeding. dark stool may have been more dietary in nature. It is unclear if his drop in hgb was sudden or something more gradual as last blood work prior to this was almost 2 years ago in 2021. - can transition PPI drip to protonix 40mg PO BID. - okay for a trial of clear liquids today. if doing well, can advance diet as tolerated. - do not suspect need for repeat EGD at this time. patient agreeable with this. Supervising Physician Co-Signing Physician Notes Agree with RODNEY Moody as above Interviewed and examined patient and agree with above noted findings Abd: Soft, NT, ND, +BS Only 1 episode of melena since his symptoms started Clear liquid diet, NPO after midnight Consider EGD if he has any signs/symptoms of further GI bleeding History of Present Illness Reason for Consultation: UGIB Requesting Physician: Bhavna Joe DO Attending Physician: Raphael Samuels DO History of Present Illness Patient is a 63 year old male with a past medical history of HTN, CAD, HLD, and asthma who presented to the ED due to syncope and dark stools. He had an EGD 02/03/24 with dilation of a mild schatzki's ring, small hiatal hernia, and gastritis. He tells me he felt well after the EGD and that night he went home and had an orange, a protein bar, and a protein shake. He tells me that he felt well at that time and went to bed. He woke up the next morning and did not feel right. He tells me he did feel some dizziness and some irritation in his throat. He decided to call off work and went to see his pcp. He tells me that at the visit with his pcp they were doing orthostatic blood pressure checks and he reported an episode of near syncope. He was then transported to the ED and tells me he did have an episode of vomiting clear fluid while in transport and felt there may have been a small red streak there. He was evaluated at that time but ultimately sent home. He tells me he had some ongoing issues with feeling dizzy and lightheaded at home and then passed a stool that was dark. He tells me that it was only a small amount. With this he proceeded back to the ED for evaluation. Since coming to the ED he has had no further issues with nausea, vomiting, and has not had any more stools since that one dark one. rest of GI ros are unremarkable. he has a history of coronary stents but has no taken any plavix since prior to his EGD when he was holding it leading into the test. 02/05/24 hgb 10.5. 02/04/24 hgb 10.9, prior to that it was 10.6. chest xray 02/04/24 unremarkable. CTA 02/04/24 mild bronchitis, pleural nodule. Allergies Allergy/AdvReac Type Severity Reaction Status Date / Time Penicillins Allergy Unknown A Verified 02/04/24 10:03 CHILD/UNSURE OF REACTION Home Medications Medication Instructions Recorded Confirmed Type aspirin 81 mg tablet,delayed 81 mg PO Q2D 12/03/19 02/05/24 History release nitroglycerin 0.4 mg sublingual 0.4 mg sublingual Q5M PRN chest 12/03/19 02/05/24 Rx tablet pain #25 tabs budesonide 180 mcg/actuation 1 inh inhalation DAILY PRN asthma 03/07/23 02/05/24 Rx breath activated powder inhaler #1 ea (Pulmicort Flexhaler) pantoprazole 40 mg tablet,delayed 40 mg PO DAILY PRN Heartburn 12/03/23 02/05/24 History release escitalopram oxalate 10 mg tablet 10 mg PO QAM 01/22/24 02/05/24 History losartan 25 mg tablet 25 mg PO QAM 01/22/24 02/05/24 History metoprolol succinate 25 mg 25 mg PO QAM 01/22/24 02/05/24 History tablet,extended release 24 hr montelukast 10 mg tablet 10 mg PO HS 01/22/24 02/05/24 History (Singulair) rosuvastatin 40 mg tablet 40 mg PO HS 01/22/24 02/05/24 History tamsulosin 0.4 mg capsule 0.4 mg PO UD 01/22/24 02/05/24 History clopidogrel 75 mg tablet (Plavix) 75 mg PO Q OTHER DAY 02/04/24 02/05/24 History prednisone 20 mg tablet 60 mg (3 x 20 mg) PO DAILY 4 days 02/04/24 02/05/24 Rx #12 tabs Patient History Medical History On anticoagulant therapy History of COVID-19 Heartburn History of cold sores Hx of prostatitis Hypertension Multiple vessel coronary artery disease Dyslipidemia Asthma Allergic rhinitis Surgical History History of colonoscopy [place] teeth removed S/P herniorrhaphy () S/P coronary artery stent placement (2004) Family History Father Coronary heart disease Grandmother (Maternal) Breast cancer Grandfather (Maternal) Myocardial infarction Grandmother (Paternal) Parkinson disease Father CVA (cerebrovascular accident due to intracerebral hemorrhage) Other No family history of adverse response to anesthesia Social History Smoking Status: Never smoker Second Hand Exposure: No ( A CHILD); Do You Dip or Chew Tobacco: No; Hx Alcohol Use: Yes Alcohol type: wine Alcohol Intake Frequency: 2-4 x/Month Hx Substance Use: No Preferred Language: Bulgarian Communication Ability: Effective Visual Impairment: Limited Hearing Ability: Normal Career Development Coordinator Required: No Beliefs That Will Affect Care: None marital status: Current Living Situation: Spouse current occupational status: employed Other Information That Helps Us Care for You: No Feels Safe at Home: Yes Safety Concerns: Feels Safe At This Time Childhood Exposure to Second-Hand Smoke: Yes Diet: regular caffeine: Yes Dental Care, Regularly: Yes Physical Activity Frequency: 5-6 Times per Week Seatbelt Use: always Sunscreen Use: Yes Do you think of yourself as: straight/heterosexual Assistive Devices: None Review of Systems Review of Systems: All systems reviewed & are unremarkable except as noted in HPI & below Physical Exam Constitutional: WD/WN, vitals as above Respiratory: normal respiratory effort, lungs clear to auscultation Cardiovascular: RRR, no murmur, no edema Gastrointestinal (Abdomen): normal bowel sounds, soft, nontender, no hepatosplenomegaly Skin: no rashes, warm and dry Psychiatric: Orientation: alert and oriented x 3 Affect: euthymic affect Results & Data Vital Signs (Past 12 Hours) Vital Signs Temp Pulse Pulse Resp BP BP Pulse Ox 02/05/24 10:10 81 16 96 02/05/24 10:00 79 17 97 02/05/24 09:50 80 20 96 02/05/24 09:40 74 16 99 02/05/24 09:30 75 17 97 02/05/24 09:20 78 17 97 02/05/24 09:10 75 13 98 02/05/24 09:00 76 19 96 02/05/24 08:50 73 22 98 02/05/24 08:40 79 20 98 02/05/24 08:30 77 18 98 02/05/24 08:20 66 14 99 02/05/24 08:10 70 15 96 02/05/24 08:00 72 16 97 02/05/24 07:58 70 13 97 02/05/24 07:53 71 18 122/78 96 02/05/24 07:40 64 13 02/05/24 07:30 118/69 02/05/24 07:30 65 13 02/05/24 07:20 65 12 02/05/24 07:11 65 02/05/24 07:10 63 13 02/05/24 07:00 62 16 96 02/05/24 07:00 123/76 02/05/24 06:50 64 17 95 02/05/24 06:40 67 14 95 02/05/24 06:30 67 16 97 02/05/24 06:30 67 16 136/81 97 02/05/24 06:20 68 17 96 02/05/24 06:12 70 17 122/73 97 02/05/24 06:10 65 13 96 02/05/24 06:00 67 13 97 02/05/24 06:00 67 13 122/73 97 02/05/24 05:53 81 98 02/05/24 05:44 66 02/05/24 05:40 69 14 94 02/05/24 05:30 68 13 93 02/05/24 05:30 68 13 111/65 93 02/05/24 05:20 68 14 94 02/05/24 05:10 65 14 94 02/05/24 05:00 67 17 92 02/05/24 04:50 65 16 97 02/05/24 04:40 69 16 96 02/05/24 04:30 66 16 117/80 94 02/05/24 04:30 66 16 94 02/05/24 04:20 70 13 95 02/05/24 04:10 68 24 96 02/05/24 04:00 71 18 95 02/05/24 04:00 71 18 134/88 95 02/05/24 03:50 66 13 94 02/05/24 03:40 67 16 96 02/05/24 03:30 69 15 96 02/05/24 03:30 69 15 118/76 96 02/05/24 03:20 74 22 96 02/05/24 03:10 71 18 95 02/05/24 03:00 69 16 93 02/05/24 03:00 69 16 120/72 93 02/05/24 02:50 67 15 94 02/05/24 02:41 80 19 96 02/05/24 02:41 80 19 107/74 96 02/05/24 02:40 84 12 95 02/05/24 02:40 84 12 120/76 95 02/05/24 02:39 70 15 95 02/05/24 02:39 70 15 127/76 95 02/05/24 02:30 65 15 94 02/05/24 02:30 65 15 115/73 94 02/05/24 02:20 68 16 94 02/05/24 02:15 74 16 95 02/05/24 02:15 74 16 112/72 95 02/05/24 02:10 66 15 95 02/05/24 02:00 68 16 112/72 95 02/05/24 01:50 67 16 96 02/05/24 01:48 67 15 95 02/05/24 01:48 66 02/04/24 22:50 98.2 F 89 18 129/83 97 O2 Del Method 02/05/24 10:10 02/05/24 10:00 02/05/24 09:50 02/05/24 09:40 02/05/24 09:30 02/05/24 09:20 02/05/24 09:10 02/05/24 09:00 02/05/24 08:50 02/05/24 08:40 02/05/24 08:30 02/05/24 08:20 02/05/24 08:10 02/05/24 08:00 02/05/24 07:58 02/05/24 07:53 Room Air 02/05/24 07:40 02/05/24 07:30 02/05/24 07:30 02/05/24 07:20 02/05/24 07:11 02/05/24 07:10 02/05/24 07:00 02/05/24 07:00 02/05/24 06:50 02/05/24 06:40 02/05/24 06:30 02/05/24 06:30 02/05/24 06:20 02/05/24 06:12 Room Air 02/05/24 06:10 02/05/24 06:00 02/05/24 06:00 02/05/24 05:53 02/05/24 05:44 02/05/24 05:40 02/05/24 05:30 02/05/24 05:30 02/05/24 05:20 02/05/24 05:10 02/05/24 05:00 02/05/24 04:50 02/05/24 04:40 02/05/24 04:30 02/05/24 04:30 02/05/24 04:20 02/05/24 04:10 02/05/24 04:00 02/05/24 04:00 02/05/24 03:50 02/05/24 03:40 02/05/24 03:30 02/05/24 03:30 02/05/24 03:20 02/05/24 03:10 02/05/24 03:00 02/05/24 03:00 02/05/24 02:50 02/05/24 02:41 02/05/24 02:41 02/05/24 02:40 02/05/24 02:40 02/05/24 02:39 02/05/24 02:39 02/05/24 02:30 02/05/24 02:30 02/05/24 02:20 02/05/24 02:15 02/05/24 02:15 02/05/24 02:10 02/05/24 02:00 02/05/24 01:50 02/05/24 01:48 02/05/24 01:48 02/04/24 22:50 Room Air Coding Level of Care Code 21704 IN/OBS CONSULT LVL 4,60M Diagnoses Anemia D64.9 Upper GI bleed K92.2
[2024-02-05] MEDS: PANTOprazole 40 MG TAB PO SCH (11:06)
[2024-02-05] MEDS: LACTATED RINGER'S 1,000 ML IV ONE (11:08)
--- NOTE | 2024-02-05 19:17 | Billing Data ---
Date of Service February 05, 2024 Coding Level of Care Code 87543 SUB INP/OBS CARE MIN
[2024-02-05] MEDS: ROSUVASTATIN CALCIUM 20 MG TAB PO SCH (21:44)
[2024-02-05] MEDS: MONTELUKAST SODIUM 10 MG TABLET PO SCH (21:44)
[2024-02-06 05:22] LABS: Hematocrit (blood only) 27.8 % (42.0-52.0); Hemoglobin 9.5 g/dl (14.0-18.0); Mean Corpuscular Hemoglobin 30.9 pg (25.0-34.0); Mean Corpuscular Hgb Conc 34.2 g/dL (32.0-36.0); Mean Corpuscular Volume 90.6 fL (80.0-100.0); Mean Platelet Volume 11.2 fL (9.4-12.4); Platelet Count 161 K/uL (130-400); RDW Coefficient of Variation 12.3 % (11.5-14.5); RDW Standard Deviation 40.3 fL (36.4-46.3); Red Blood Count 3.07 M/uL (4.70-6.10); White Blood Count 11.31 K/ul (4.8-10.8)
[2024-02-06 05:34] LABS: BUN Creatinine Ratio 21.1 (10-20); Calcium 8.6 mg/dl (8.6-10.3); Creatinine Clr Calc Pharmacy 107.9 ml/min; Est GFR (African American) 116.5 ml/min; Est GFR (Non-African American) 100.6 ml/min; Potassium 3.8 mmol/L (3.5-5.1)
--- NOTE | 2024-02-06 08:37 | Anesthesiology Consultation ---
Date of Service February 06, 2024 Assessment & Plan Chart Review Chart Review: email marketing manager initiated History Surgery Operation Date: 02/06/24 17:15 Proposed Procedures p Esophagogastroduodenoscopy Dr Jayant Saba, DO Height/Weight Height: 5 ft 9 in Weight: 70.9 kg Allergies Allergy/AdvReac Type Severity Reaction Status Date / Time Penicillins Allergy Unknown A Verified 02/04/24 10:03 CHILD/UNSURE OF REACTION Medications Home Medications Medication Instructions Recorded Confirmed Last Taken aspirin 81 mg tablet,delayed 81 mg PO Q2D 12/03/19 02/05/24 02/02/24 release nitroglycerin 0.4 mg sublingual 0.4 mg sublingual Q5M PRN chest 12/03/19 02/05/24 Unknown tablet pain #25 tabs budesonide 180 mcg/actuation 1 inh inhalation DAILY PRN asthma 03/07/23 02/05/24 Unknown breath activated powder inhaler #1 ea (Pulmicort Flexhaler) pantoprazole 40 mg tablet,delayed 40 mg PO DAILY PRN Heartburn 12/03/23 02/05/24 Unknown release escitalopram oxalate 10 mg tablet 10 mg PO QAM 01/22/24 02/05/24 02/02/24 losartan 25 mg tablet 25 mg PO QAM 01/22/24 02/05/24 02/02/24 metoprolol succinate 25 mg 25 mg PO QAM 01/22/24 02/05/24 02/02/24 tablet,extended release 24 hr montelukast 10 mg tablet 10 mg PO HS 01/22/24 02/05/24 02/02/24 (Singulair) rosuvastatin 40 mg tablet 40 mg PO HS 01/22/24 02/05/24 02/01/24 tamsulosin 0.4 mg capsule 0.4 mg PO UD 01/22/24 02/05/24 Unknown clopidogrel 75 mg tablet (Plavix) 75 mg PO Q OTHER DAY 02/04/24 02/05/24 Unknown prednisone 20 mg tablet 60 mg (3 x 20 mg) PO DAILY 4 days 02/04/24 02/05/24 Unknown #12 tabs cyanocobalamin (vitamin B-12) 1,000 mcg PO DAILY #30 tabs 02/06/24 Unknown 1,000 mcg tablet Active Medications Generic Name Dose Route Start Last Admin Trade Name Freq PRN Reason Stop Dose Admin Escitalopram Oxalate 10 mg 02/05/24 09:00 02/05/24 08:50 Escitalopram Oxalate 10 Mg Tab PO 03/06/24 08:59 10 mg QAM ANDRE Administration Lactated Ringer's 1,000 mls @ 125 mls/hr 02/05/24 05:22 02/06/24 05:49 Lr IV 03/06/24 05:21 125 mls/hr .Q8H ANDRE Administration Montelukast Sodium 10 mg 02/05/24 21:00 02/05/24 21:44 Montelukast Sodium 10 Mg Tablet PO 03/06/24 20:59 10 mg HS ANDRE Administration Pantoprazole Sodium 40 mg 02/05/24 10:45 02/05/24 21:44 Pantoprazole 40 Mg Tab PO 03/06/24 10:44 40 mg BID ANDRE Administration Rosuvastatin Calcium 40 mg 02/05/24 21:00 02/05/24 21:44 Rosuvastatin Calcium 20 Mg Tab PO 03/06/24 20:59 40 mg HS ANDRE Administration Past Medical History Medical History On anticoagulant therapy History of COVID-19 05/2021->severe flu symptoms. treated Paxlovid -> then developed a rebound covid (severe sob) Heartburn History of cold sores Treated with Valtrex Hx of prostatitis hx - no recent issues Hypertension Multiple vessel coronary artery disease Dyslipidemia Asthma used inhaler earlier in December 2023 Allergic rhinitis Past Family History Family History Father Coronary heart disease Grandmother (Maternal) Breast cancer Grandfather (Maternal) Myocardial infarction Grandmother (Paternal) Parkinson disease Father CVA (cerebrovascular accident due to intracerebral hemorrhage) Other No family history of adverse response to anesthesia Past Surgical History Surgical History History of colonoscopy 09/2022 Repeat 10 yrs [place] teeth removed S/P herniorrhaphy (~2012) S/P coronary artery stent placement (2004) 2005-> 1 stent placed at [place], follows with Dr Cardenas. Reason for the Plavix Social History Smoking Status: Never smoker Do You Dip or Chew Tobacco: No Hx Alcohol Use: Yes Alcohol type: wine alcohol intake frequency: holidays/special occasions only Hx Substance Use: No substance use type: does not use Physical Exam Vital Signs Last Vital Signs Temp 97.9 F 02/06/24 07:47 Pulse 59 L 02/06/24 07:47 Resp 14 02/06/24 07:47 BP 124/70 02/06/24 07:47 Pulse Ox 98 02/06/24 07:47 O2 Del Method Room Air 02/06/24 07:47 Testing Laboratory Results 02/06/24 03:46 02/06/24 03:46 PT 11.1 Seconds (9.0-12.0) 02/04/24 23:15 INR 1.0 (0.9-1.1) 02/04/24 23:15 APTT 23 Seconds (21-31) 02/04/24 23:15 Blood Type O Negative 02/04/24 23:17 Antibody Screen NEGATIVE 02/04/24 23:17 Electrocardiogram Date: 02/04/24 Normal sinus rhythm, rate 75 bpm Possible Left atrial enlargement Borderline ECG When compared with ECG of 04-FEB-2024 11:34, (unconfirmed) No significant change was found Chest X-Ray Date: 02/04/24 Findings: + NAD
--- NOTE | 2024-02-06 09:15 | History & Physical Bridge Note ---
Date of Service February 06, 2024 History & Physical Bridge Note I have examined the patient, reviewed the History & Physical and in the interval since the performance of the History & Physical I have noted the following changes of clinical significance: no changes noted. no further dark stools, but hgb did drop from 10.5 to 9.5. GI ros unremarkable. will plan for EGD today to further evaluate. Supervising Physician Co-Signing Physician Notes Agree with RODNEY Moody as above Abd: Soft, NT, ND, +BS Continue current therapy and supportive care Proceed with EGD.
--- NOTE | 2024-02-06 11:44 | Hospitalist Progress Note ---
Date of Service February 06, 2024 Assessment & Plan (1) Upper GI bleed: Plan: Pt is a 63 yo male with PMH of HTN, CAD, HLD, and asthma presenting due to syncope and dark stools. Upper GI bleed - pt had endoscopy performed 02/03/2024 where he had a Schatzki ring dilated and biopsies taken d/t gastritis (path showed inflammation, no metaplasia) - Hgb from 02/2022 15.0; 10.9 upon admission - continue oral protonix \ - monitor Hgb and symptoms for stability/improvement - GI consulted; will repeat EGD today with worsened anemia, Acute blood loss anemia, - secondary to above - folate 12.68, B12 292, iron studies WNL (although ferritin low-normal) - Hgb 10.5 yest to 9.5 today Orthostatic hypotension w/ syncope - pt was evaluated upon prior presentation to the ER 02/03 after passing out at his PCP office while having orthostatic VS performed - CXR neg; CTA showed no PE or consolidations and a 3 mm lung nodule (not requiring f/u) - suspect most likely secondary to above - hold home losartan, metoprolol, and tamsulosin CAD - pt states he had a stent placed in 2004; no hx of acute TX or stroke - will hold plavix and aspirin in the setting of active bleed; if Hgb remains stable, possibly can restart the plavix in 1 week but should stay off aspirin due to risk of GI bleed Depression - continue home escitalopram 10 mg IVF: 125 mL/hr LR for volume repletion, s/p 1L bolus yesterday VTE ppx: deferred in the setting of GI bleed (2) Hypertension: (3) Dyslipidemia: (4) Multiple vessel coronary artery disease: (5) Anemia: (6) Orthostatic hypotension: Admission and Anticipated Discharge Date Admission Date: February 05, 2024 Subjective Pt is a 63 yo male with PMH of HTN, CAD, HLD, and asthma presenting due to syncope and dark stools. Today, pt states he has been feeling great. States he has not had a bowel movement since admission according to him. No questions or complaints today. Review of Systems Review of Systems: Per HPI. Physical Exam Physical Exam: General:Alert and oriented, no acute distress, HEENT: Normocephalic, moist oral mucosa, Cardio: Regular rate and rhythm, no murmur, Resp:Lungs clear to auscultation b/l, no wheezes or rhonchi, GI: Soft and nontender, nondistended, bowel sounds active Skin: Warm, pink, dry, Psych: Mood-affect congruence. Results & Data Results & Data Vital Signs (Past 12 Hours) Vital Signs Temp Pulse Pulse Resp BP Pulse Ox O2 Del Method 02/06/24 11:41 36.9 C 67 18 154/85 H 100 Room Air 02/06/24 11:02 36.8 C 58 L 12 130/70 98 Room Air 02/06/24 07:47 36.6 C 59 L 14 124/70 98 Room Air 02/06/24 05:57 53 L 02/06/24 03:40 36.6 C 59 L 18 166/70 H 97 Room Air Resident Activity Tracking Resident Involvement: Resident Care Provided Care Provided: Adult Hospital Medicine (5) Anemia Anemia type: unspecified type Qualified Code(s): D64.9 - Anemia, unspecified
[2024-02-06] MEDS ORDERED: LIDOCAINE 2% 2 ML VIAL/AMP(20MG/ML) INFIL ONE (11:52)
[2024-02-06] MEDS ORDERED: PROPOFOL IV EMULSION 10 MG/ML 20 ML VIAL IV ONE (11:52)
[2024-02-06] MEDS: SODIUM CHLORIDE 0.9% 500 ML IV SCH (12:19)
--- NOTE | 2024-02-06 12:37 | GI REPORT ---
Patient Name: Jose Hernandez Procedure Date: 02/06/2024 11:56 AM Date of : 1960 Admit Type: Inpatient Age: 63 Gender: Male Attending MD: Ravindra Saba DO, Procedure: Upper GI endoscopy Providers: Ravindra Saba DO Referring MD: Ramone Cortsé Indications: Acute post hemorrhagic anemia, Melena Medicines: Monitored Anesthesia Care Complications: No immediate complications. Estimated Blood Loss: Estimated blood loss: none. Procedure: Pre-Anesthesia Assessment: - Prior to the procedure, a History and Physical was performed, and patient medications and allergies were reviewed. The patient's tolerance of previous anesthesia was also reviewed. The risks and benefits of the procedure and the sedation options and risks were discussed with the patient. All questions were answered, and informed consent was obtained. Prior Anticoagulants: The patient has taken Plavix (clopidogrel), last dose was 7 days prior to procedure. ASA Grade Assessment: III - A patient with severe systemic disease. After reviewing the risks and benefits, the patient was deemed in satisfactory condition to undergo the procedure. After obtaining informed consent, the endoscope was passed under direct vision. Throughout the procedure, the patient's blood pressure, pulse, and oxygen saturations were monitored continuously. The Endoscope was introduced through the mouth, and advanced to the third part of duodenum. The upper GI endoscopy was accomplished without difficulty. The patient tolerated the procedure well. Findings: Two superficial esophageal ulcers with no stigmata of recent bleeding were found. The largest lesion was 2 mm in largest dimension. A small hiatal hernia was present. The examined duodenum was normal. Impression: - Esophageal ulcers with no stigmata of recent bleeding. - Small hiatal hernia. - Normal examined duodenum. - No specimens collected. Recommendation: - Return patient to [facility] for [facility] care. - Advance diet as tolerated. - Continue present medications. Ravindra Saba DO 02/06/2024 12:37:03 PM This report has been signed electronically. Note Initiated On: 02/06/2024 11:56 AM Number of Addenda: 0 I attest to the content of the Intraoperative Record and orders documented therein, exceptions below {[id number]}
--- NOTE | 2024-02-06 12:50 | Anesthesiology Progress Note ---
Date of Service February 06, 2024 Anesthesia Post Procedure Vital Signs Vital Signs: Temp Pulse Pulse Resp BP Pulse Ox O2 Del Method 02/06/24 12:34 97.5 F L 60 18 96/53 L 96 Room Air 02/06/24 11:41 98.4 F 67 18 154/85 H 100 Room Air 02/06/24 11:02 98.2 F 58 L 12 130/70 98 Room Air 02/06/24 07:47 97.9 F 59 L 14 124/70 98 Room Air 02/06/24 05:57 53 L 02/06/24 03:40 97.9 F 59 L 18 166/70 H 97 Room Air 02/05/24 23:29 65 02/05/24 21:42 98.1 F 65 16 131/72 97 Room Air 02/05/24 15:04 70 Transfer of Care Handoff Completed per policy Notes Mental Status: alert / awake / arousable and participated in evaluation Patient Amnestic to Procedure: Yes Nausea / Vomiting: adequately controlled Pain: adequately controlled Airway Patency, RR, SpO2: stable & adequate BP & HR: stable & adequate Hydration State: stable & adequate Anesthetic Complications: no major complications apparent and Pt Satisfied with anesthetic care
--- NOTE | 2024-02-06 15:29 | Discharge Summary ---
Date of Service February 06, 2024 Admission HPI Per Admitting Provider Pt is a 63 yo male with PMH of HTN, CAD, HLD, and asthma presenting due to syncope and dark stools. Pt relays that he had an endoscopy on 02/02 d/t GERD. That evening, he began to feel lightheaded/dizzy and SOB, especially when walking around. He was seen at his PCP office yesterday and when doing orthostatic vital signs, he passed out. He was evaluated in the ER and discharged home. However, after arriving at home, he continued to feel lightheaded/dizzy with ambulation and noted to have a black stool which prompted his return to the ER. In the ER, pt was started on a protonix drip and given famotidine 20 mg x1. Admission Exam Per Admitting Provider Constitutional: NAD, vitals WNL. Pale appearing. Respiratory: CTA bilaterally. Non labored breathing. No rhonchi, wheezing, or crackles. Cardiovascular: RRR. No murmurs noted. No LE edema. Gastrointestinal (Abdomen): Nontender, +BS. No masses noted. Skin: No rashes or skin lesions noted. Neurologic: Sensation grossly intact. No FND appreciated. Psychiatric: Speech of normal pace and content. Mood and affect congruent. Principal Diagnosis GI bleed Discharge Exam General:Alert and oriented, no acute distress, HEENT: Normocephalic, moist oral mucosa, Cardio: Regular rate and rhythm, no murmur, Resp:Lungs clear to auscultation b/l, no wheezes or rhonchi, GI: Soft and nontender, nondistended, bowel sounds active Skin: Warm, pink, dry, Psych: Mood-affect congruence. Discharge Data Allergies Allergy/AdvReac Type Severity Reaction Status Date / Time Penicillins Allergy Unknown A Verified 02/04/24 10:03 CHILD/UNSURE OF REACTION Consultations 02/05/24 04:03 ED Decision to Admit Stat 02/05/24 07:33 Consult Gastroenterology Routine Procedures Performed Operation Date: 02/06/24 17:15 Actual Procedures p Esophagogastroduodenoscopy - Ravindra Moffett Case, DO Hospital Course (1) Upper GI bleed: Pt is a 63 yo male with PMH of HTN, CAD, HLD, and asthma presenting due to syncope and dark stools. Upper GI bleed - pt had endoscopy performed 02/03/2024 where he had a Schatzki ring dilated and biopsies taken d/t gastritis (path showed inflammation, no metaplasia) - Hgb from 02/2022 15.0; 10.9 upon admission - continue oral protonix, 40 mg BID dosing once home - GI consulted; repeat EGD done today and unremarkable for active bleeding Acute blood loss anemia, - secondary to above - folate 12.68, B12 292, iron studies WNL (although ferritin low-normal) - Hgb 10.5 yest to 9.5 today Orthostatic hypotension w/ syncope - pt was evaluated upon prior presentation to the ER 02/03 after passing out at his PCP office while having orthostatic VS performed - CXR neg; CTA showed no PE or consolidations and a 3 mm lung nodule (not requiring f/u) - suspect most likely secondary to above - hold home losartan, metoprolol, and tamsulosin until seen my pcp as pressures good if not sometimes soft off of them here CAD - pt states he had a stent placed in 2004; no hx of acute MA or stroke - will hold plavix and aspirin in the setting of active bleed; if Hgb remains stable, possibly can restart the plavix in 1 week but should stay off aspirin due to risk of GI bleed - should f/u with pcp to discuss restarting plavix/aspirin in 1 week (2) Hypertension: (3) Dyslipidemia: (4) Multiple vessel coronary artery disease: (5) Anemia: (6) Orthostatic hypotension: Total Time Total Time Spent Total Time Spent (In Minutes): <30 Discharge Plan Discharge Items Patient Disposition: Home - Self-Care Reason For Visit: UPPER GI BLEED Discharge Diagnosis: GI bleed Activity: Per Instructions section Non-emergency contact: Primary Care Provider Call non-emergency contact if: you have any medication questions and your symptoms worsen Follow-up/Referrals: Ramone Alan, [Primary Care Provider] - Diet: Regular Addtl Attending Provider Instructions: You were admitted for GI bleed and syncope (passing out). A repeat EGD shows no active signs of bleeding and your syncope appears to be related to drops in blood pressure with changes in position. Your symptoms have improved, and we feel it is safe for you to return home with the medication changes noted below. You should plan to call your primary care provider tomorrow and make an appointment for early or middle of next week with them for a "Hospital follow- up." Please let them know that you should get a repeat blood count (called a CBC) next week to ensure your hemoglobin (blood level) comes back up, and they can order this blood test for you. Medications: Your medication list has been reviewed and reconciled upon discharge to ensure accuracy and continuity of care. An updated list of all your medications is included with your hospital discharge paperwork. Please review this list closely, and make note of any changes. We have changed your dose of a medication called Protonix (pantoprazole). Please take pantoprazole as 40 mg twice daily every day. This is an acid suction worker that will allow the ulcer they found on your EGD to heal by allowing the wound to heal in a more neutral environment. Please HOLD your: 1.) Plavix (anti-platelet drug started after your stent) Please hold this medication for at least the next 1 week. Your primary care provider should do a repeat blood count (called a CBC) at about 1 week from discharge from the hospital to ensure your hemoglobin (or blood level) is coming back up before restarting this agent. Aspirin should be stopped, probably indefinitely, as it can lead to stomach ulcers when used long-term. Please STOP taking your: 1.) Metoprolol (medication for your heart that can lower blood pressure) 2.) Losartan (blood pressure medication) 3.) Tamsulosin (medication for your prostate/BPH) 4.) Aspirin (medication for your heart) Stop taking these medications until you follow up with your primary care physician within the next week. We recommend taking your blood pressure once or twice daily at home when you are relaxed in the meantime to evaluate the need for these medications or assess the need to switch any of these agents to something that may work better for you. The first three medications on the list can cause hypotension(or low blood pressure) which was noted to be the cause of passing out when you were at your doctor's appointment. These three medications should be held for now and gradually reintroduced to see how they are tolerated. Aspirin is discussed above. Take your medications as instructed; do not skip a dose of your medicines. Make sure all of your doctors know every medicine you are taking (including [id number] medicines, vitamins, and supplements). Call your primary care provider before taking any new medicines (including over- the-counter medicines, vitamins, and supplements), because some of these may interact with your current medications, or may make your symptoms worse. Tell your primary care provider if you cannot afford your medications. Activity: You can do normal everyday activities as your body allows. Take rest breaks if you feel tired. Do not overexert. Stop activity if you have pain, shortness of breath or feel dizzy. Follow-up appointments: Make an appointment with your primary care physician within one week of discharge. A copy of this summary will be sent to them. Every time you see your primary care physician, or any other doctor, bring your medication list, and a list of questions. CONTACT YOUR PRIMARY CARE PROVIDER if you experience any of the following: Shortness of breath or difficulty breathing Swelling of your feet, ankles, hands or abdomen Feeling tired with normal activity or experiencing dizziness or fainting Difficulty following your treatment plan, or difficulty taking medications CALL 911 OR GO TO THE EMERGENCY DEPARTMENT if you experience any of the following: Severe abdominal pain or nausea/vomiting Severe chest pain, or chest pain that radiates (moves) to your jaw or arm Sudden, severe shortness of breath or difficulty breathing Thank you for allowing us to participate in your care. Pending Studies at Discharge: No Stand-Alone Forms: My [facility] Medications and DC Order Prescriptions: New cyanocobalamin (vitamin B-12) 1,000 mcg tablet 1,000 mcg PO DAILY Qty: 30 3RF pantoprazole 40 mg Tablet,Delayed Release (Dr/Ec) 40 mg PO BID Qty: 60 1RF Continued Pulmicort Flexhaler 180 mcg/actuation aerosol powdr breath activated 1 inh INH DAILY PRN (Reason: asthma) Qty: 1 1RF nitroglycerin 0.4 mg tablet, sublingual 0.4 mg SL Q5M PRN (Reason: chest pain) Qty: 25 3RF montelukast [Singulair] 10 mg tablet 10 mg PO HS escitalopram oxalate 10 mg tablet 10 mg PO QAM Patient Comments: QAM rosuvastatin 40 mg tablet 40 mg PO HS Patient Comments: HS prednisone 20 mg tablet 60 mg PO DAILY 4 Days Qty: 12 0RF Held tamsulosin 0.4 mg capsule 0.4 mg PO UD Hold Instructions: Resume on 02/14/24. Hold until seen my primary care physician. Rx Instructions: currently not using but will agrees he will use it if he feels his prostate is irritated losartan 25 mg tablet 25 mg PO QAM Hold Instructions: Resume on 02/14/24. Hold until seen my primary care physician. metoprolol succinate 25 mg tablet extended release 24 hr 25 mg PO QAM Hold Instructions: Resume on 02/14/24. Hold until seen my primary care physician. Patient Comments: QAM clopidogrel [Plavix] 75 mg tablet 75 mg PO Q OTHER DAY Hold Instructions: Resume on 02/13/24. Hold until seen my primary care physician. Discontinued pantoprazole 40 mg tablet,delayed release (DR/EC) 40 mg PO DAILY PRN (Reason: Heartburn) aspirin 81 mg tablet,delayed release (DR/EC) 81 mg PO Q2D Discharge Orders: Discharge Order (Routine); Ordered 02/06/24 Ordered By: Kelsi Dhaliwal Admission Data Admit Date/Time: 02/05/24 04:30 Attending Provider: Raphael Samuels Admit Provider: Ashleigh Osullivan Primary Care Provider: Ramone Alan Other Providers: Bhavna Joe; Ravindra Saba Other Interventions: Discharge Summary Assessment (RN) Last Done: 02/06/24 16:08 Supervising Physician Co-Signing Physician Notes I personally examined the patient and verified all soni points of history and exam, discussed case, and agree with decision making with Dr Dhaliwal feeling better EGD noted eating OK wants to go home lightheadedness gone vitals noted nad heent nc at mmm breathing unlabored no accessory muscles good effort skin no rashes no pallor or icterus neuro no focal deficits esophageal ulcers/UGI bleed w acute blood loss anemia and orthostasis - doing better; safe/stable for home. PPI. off all antiplatelets for now - PCP and repeat CBC next week. if feeling better and Hgb rising then can resume plavix next week. d/w primary benefits analyst who agrees with this plan. Resident Activity Tracking Resident Involvement: Resident Care Provided Care Provided: Adult [facility] Medicine
--- NOTE | 2024-02-06 16:43 | Billing Data ---
Date of Service February 06, 2024 Coding Level of Care Code 13255 IN/OBS DISCH 30 MIN/LESS
--- NOTE | 2024-02-07 09:30 | Electrocardiogram Report ---
Test Reason : Blood Pressure : / mmHG Vent. Rate : 075 BPM Atrial Rate : 075 BPM P-R Int : 146 ms QRS Dur : 092 ms QT Int : 344 ms P-R-T Axes : 060 030 035 degrees QTc Int : 384 ms Normal sinus rhythm Possible Left atrial enlargement Borderline ECG When compared with ECG of 04-FEB-2024 11:34, No significant change was found Confirmed by Deny Desai ([id number]) on 02/07/2024 9:29:57 AM Referred By: REFERRED SELF Confirmed By:Deny Desai
== END 2024-02-06 16:20 | disposition home or self-care (01) | DRG 381 ==
LOC: ED 22:42 → EDINP 02-05 04:30 → SUATTDRO 02-05 04:30 → 2W 02-05 05:22